=== PATIENT | female | born 1985 | race Caucasian/White ===

== ENCOUNTER 2017-08-15 22:03 | Emergency (ER) | payer SELFPAY ==
[~2017-08-15] VITALS: Ht 172.7 cm; Wt 109.9 kg
== END 2017-08-16 00:20 | disposition home or self-care (01) ==
LOC: FSED 22:03
DX: R50.9 Fever, unspecified (principal); R11.2 Nausea with vomiting, unspecified; A08.11 Acute gastroenteropathy due to Norwalk agent; F17.210 Nicotine dependence, cigarettes, uncomplicated
CPT/HCPCS: 87400; 99282

== ENCOUNTER 2020-03-08 21:01 | Emergency (ER) | payer MEDICARE ==
[~2020-03-08] VITALS: Ht 172.7 cm; Wt 109.8 kg
[2020-03-08] MEDS ORDERED: SODIUM CHLORIDE 0.9% 1000ML 1,000 ML IV STA (21:19)
[2020-03-08] MEDS ORDERED: DIPHENHYDRAMINE HCL INJ 50 MG/ML VIAL IV ONE (21:30)
[2020-03-08] MEDS ORDERED: HYDROCODONE/APAP 5MG-325MG TAB ONE (21:43)
[2020-03-08] MEDS ORDERED: HYDROCODONE/APAP 5MG-325MG TAB PO ONE (21:45)
[2020-03-08] MEDS ORDERED: DIPHENHYDRAMINE HCL INJ 50 MG/ML VIAL ONE (21:55)
[2020-03-08] MEDS ORDERED: SODIUM CHLORIDE 0.9% 1000ML 1,000 ML ONE (21:55)
== END 2020-03-08 22:35 | disposition home or self-care (01) ==
LOC: FSED 21:35
DX: R51.9 Headache, unspecified (principal); I82.0 Budd-Chiari syndrome; G40.909 Epilepsy, unspecified, not intractable, without status epilepticus; Z98.84 Bariatric surgery status
CPT/HCPCS: 70450; 80053; 85025; 99284; J1200; J7030

== ENCOUNTER 2020-04-06 13:53 | Emergency (ER) | payer OTHER ==
[~2020-04-06] VITALS: Ht 172.7 cm; Wt 113.4 kg
[2020-04-06] MEDS ORDERED: SODIUM CHLORIDE 0.9% 1000ML 1,000 ML IV STA (14:29)
[2020-04-06] MEDS ORDERED: SODIUM CHLORIDE FLUSH 10 ML SYR INJ PRN (14:30)
[2020-04-06] MEDS ORDERED: SODIUM CHLORIDE 0.9% 1000ML 1,000 ML ONE (14:52)
[2020-04-06] MEDS ORDERED: LEVETIRACETAM500 MG PO (15:22)
== END 2020-04-06 15:40 | disposition home or self-care (01) ==
LOC: FSED 14:07
DX: E86.0 Dehydration (principal); F43.9 Reaction to severe stress, unspecified; G40.909 Epilepsy, unspecified, not intractable, without status epilepticus; E66.9 Obesity, unspecified; F17.210 Nicotine dependence, cigarettes, uncomplicated
CPT/HCPCS: 36415; 80048; 80076; 80307; 81003; 81025; 84702; 85025; 99284; J7030

== ENCOUNTER 2020-08-19 19:37 | Emergency (ER) | payer OTHER ==
[~2020-08-19] VITALS: Ht 172.7 cm; Wt 113.4 kg
[~2020-08-19 19:37] MED LIST: LEVETIRACETAM500 MG PO
[2020-08-19] MEDS ORDERED: ONDANSETRON HCL INJ 2MG/ML 2ML 2 MG/ML VIAL IV STA (19:43)
[2020-08-19] MEDS ORDERED: FENTANYL CITRATE/PF 100MCG/2 ML INJ IV ONE (19:45)
== END 2020-08-19 22:30 | disposition home or self-care (01) ==
LOC: FSED 19:48
DX: O26.92 Pregnancy related conditions, unspecified, second trimester (principal); R10.2 Pelvic and perineal pain; R10.31 Right lower quadrant pain; G40.909 Epilepsy, unspecified, not intractable, without status epilepticus; E66.9 Obesity, unspecified; F17.210 Nicotine dependence, cigarettes, uncomplicated
CPT/HCPCS: 76801; 76805; 80053; 81003; 81025; 85025; 99283

== ENCOUNTER 2021-01-20 20:01 | Emergency (ER) | payer OTHER ==
[~2021-01-20] VITALS: Ht 172.7 cm; Wt 108.9 kg
[2021-01-20] MEDS ORDERED: SODIUM CHLORIDE 0.9% 1000ML 1,000 ML IV SCH (21:00)
[2021-01-20] MEDS ORDERED: DIPHENHYDRAMINE HCL INJ 50 MG/ML VIAL IV ONE (21:00)
[2021-01-20] MEDS ORDERED: DEXAMETHASONE SOD PHOS INJ 4 MG/ML SDV IV ONE (21:00)
[2021-01-20] MEDS ORDERED: METOCLOPRAMIDE HCL 10 MG/2ML VIAL IV ONE (21:00)
[2021-01-20] MEDS ORDERED: SODIUM CHLORIDE 0.9% 1000ML 1,000 ML ONE (21:25)
[2021-01-20] MEDS ORDERED: DEXAMETHASONE SOD PHOS INJ 4 MG/ML SDV ONE (21:25)
[2021-01-20] MEDS ORDERED: METOCLOPRAMIDE HCL 10 MG/2ML VIAL ONE (21:25)
[2021-01-20] MEDS ORDERED: DIPHENHYDRAMINE HCL INJ 50 MG/ML VIAL ONE (21:25)
[2021-01-20] MEDS ORDERED: ONDANSETRON ODT4 MG PO (22:24)
== END 2021-01-20 23:00 | disposition home or self-care (01) ==
LOC: FSED 20:16
DX: R51.9 Headache, unspecified (principal); G40.909 Epilepsy, unspecified, not intractable, without status epilepticus; I82.0 Budd-Chiari syndrome; Z98.84 Bariatric surgery status; F17.210 Nicotine dependence, cigarettes, uncomplicated
CPT/HCPCS: 80053; 85025; 99283; J1100; J1200; J2765; J7030

== ENCOUNTER 2021-07-01 09:27 | Emergency (ER) | payer OTHER ==
[~2021-07-01] VITALS: Ht 172.7 cm; Wt 111.1 kg
[~2021-07-01 09:27] MED LIST changes: +ONDANSETRON ODT4 MG PO
[2021-07-01] MEDS ORDERED: CEFDINIR300 MG PO (10:28)
[2021-07-01] MEDS ORDERED: PREDNISONE20 MG PO (10:28)
[2021-07-01] MEDS ORDERED: BENZONATATE200 MG PO (10:29)
== END 2021-07-01 10:34 | disposition home or self-care (01) ==
LOC: FSED 10:26
DX: R05.9 Cough, unspecified (principal); J20.9 Acute bronchitis, unspecified; J01.90 Acute sinusitis, unspecified; G40.909 Epilepsy, unspecified, not intractable, without status epilepticus; E66.9 Obesity, unspecified
CPT/HCPCS: 87400; 99282

== ENCOUNTER 2021-08-05 11:03 | Emergency (ER) | payer OTHER ==
[~2021-08-05] VITALS: Ht 172.7 cm; Wt 112.9 kg
[~2021-08-05 11:03] MED LIST changes: +BENZONATATE200 MG PO; +CEFDINIR300 MG PO; +PREDNISONE20 MG PO
[2021-08-05] MEDS ORDERED: LAMOTRIGINE200 MG (11:27)
[2021-08-05] MEDS ORDERED: IBUPROFEN 600 MG TAB PO NR (11:48)
[2021-08-05] MEDS ORDERED: ZITHROMAX250 MG PO (11:50)
[2021-08-05] MEDS ORDERED: BENZONATATE200 MG PO (11:50)
[2021-08-05] MEDS ORDERED: IBUPROFEN 600 MG TAB ONE (12:15)
== END 2021-08-05 12:09 | disposition home or self-care (01) ==
LOC: FSED 11:48
DX: R50.9 Fever, unspecified (principal); J20.9 Acute bronchitis, unspecified; R05.9 Cough, unspecified; G40.909 Epilepsy, unspecified, not intractable, without status epilepticus; E66.9 Obesity, unspecified; F17.210 Nicotine dependence, cigarettes, uncomplicated
CPT/HCPCS: 87400; 99283

== ENCOUNTER 2023-12-08 14:28 | Emergency (ER) | payer OTHER ==
[~2023-12-08] VITALS: Ht 172.7 cm; Wt 121.2 kg
[~2023-12-08 14:28] MED LIST changes: +CLINDAMYCIN HC150 MG PO; +FLUCONAZOLE100 MG PO; +LAMOTRIGINE200 MG; +NAPROSYN500 MG PO; +ZITHROMAX250 MG PO
[2023-12-08] MEDS ORDERED: TRAMADOL HCL 50 MG TAB PO ONE (15:15)
[2023-12-08] MEDS: CYCLOBENZAPRINE HCL 10 MG TAB PO ONE (15:42)
[2023-12-08] MEDS ORDERED: IOPAMIDOL 370 MG/ML 100 ML INFUS..BTL INJ ONE (16:02)
[2023-12-08] MEDS ORDERED: CYCLOBENZAPRINE5 MG PO (16:59)
[2023-12-08 17:16] VITALS: PULSE 87; RESP 16; TEMP 99.1; O2SAT 99
== END 2023-12-08 17:12 | disposition home or self-care (01) ==
LOC: FSED 14:42
DX: S00.83XA Contusion of other part of head, initial encounter (principal); R51.9 Headache, unspecified; M25.552 Pain in left hip; M54.50 Low back pain, unspecified; V43.52XA Car driver injured in collision with other type car in traffic accident, initial encounter; Y92.488 Other paved roadways as the place of occurrence of the external cause; E66.9 Obesity, unspecified; G40.909 Epilepsy, unspecified, not intractable, without status epilepticus; I82.0 Budd-Chiari syndrome; Z98.84 Bariatric surgery status
CPT/HCPCS: 70450; 74177; 80053; 85025; 99284; Q9967

== ENCOUNTER 2024-02-16 08:07 | Emergency (ER) | payer OTHER ==
[~2024-02-16] VITALS: Ht 172.7 cm; Wt 121.3 kg
[~2024-02-16 08:07] MED LIST changes: +CYCLOBENZAPRINE5 MG PO
[2024-02-16 08:13] VITALS: PULSE 95; RESP 16; TEMP 97.5
[2024-02-16] MEDS ORDERED: PREDNISONE20 MG PO (09:14)
[2024-02-16 09:31] VITALS: BP 143/84; PULSE 89; RESP 16; TEMP 97.4; O2SAT 98
== END 2024-02-16 09:25 | disposition home or self-care (01) ==
LOC: FSED 08:14
DX: M79.671 Pain in right foot (principal); M72.9 Fibroblastic disorder, unspecified; E66.9 Obesity, unspecified; G40.909 Epilepsy, unspecified, not intractable, without status epilepticus; Z98.84 Bariatric surgery status; F17.210 Nicotine dependence, cigarettes, uncomplicated
CPT/HCPCS: 99284